=== PATIENT | female | born 1995 | race Two or more races ===

== ENCOUNTER 2022-09-12 13:20 | Inpatient (IN) ==
[2022-09-12] MEDS ORDERED: Lactated Ringers 1000 ml BAG 1,000 ML IV SCH (14:00)
[2022-09-12] MEDS ORDERED: Buffered Lidocaine 1% SYRIN 1 ml INTRADERM ONE (14:00)
[2022-09-12] MEDS ORDERED: Lactated Ringers 1000 ml BAG 1,000 ML IV ONE (14:00)
[2022-09-12 15:22] LABS: Urine Benzodiazepine Screen None Detected (None Detect); Urine Cannabinoids Screen None Detected (None Detect); Urine Opiates Screen None Detected (None Detect)
[2022-09-13] MEDS ORDERED: Witch Hazel PAD JAR TOPICAL PRN (02:31)
[2022-09-13] MEDS ORDERED: Dibucaine 1% OINT 28.35 GM TUBE PR PRN (02:31)
[2022-09-13] MEDS ORDERED: Glycerin ADULT 2.4 gm SUPP PR PRN (02:31)
[2022-09-13] MEDS ORDERED: Lidocaine 1% MPF 5 ML VIAL ONE (05:13)
[2022-09-14 07:14] LABS: ABS Eosinophils 0.1 10^3/ul (0-0.6); ABS Lymphocytes 1.9 10^3/ul (1.0-4.8); ABS Monocytes 0.9 10^3/ul (0-0.8); ABS Neutrophils 9.4 10^3/ul (1.5-7.7); Eosinophil % 0.5 %; Hematocrit 34 % (35-47); Lymphocyte % 15.5 %; Mean Corpuscular HGB Conc 33 g/dL (31-36); Mean Corpuscular Hemoglobin 28 pg (27-31); Mean Corpuscular Volume 86 fL (80-97); Mean Platelet Volume 8.5 fL (7.4-10.4); Platelet Count 250 10^3/uL (150-450); Red Blood Count 3.95 10^6 /uL (3.70-4.87); Red Cell Distribution Width 18 % (10-15); White Blood Count 12.3 10^3/uL (3.5-10.8)
[2022-09-15 08:14] VITALS: BP 100/56
== END 2022-09-15 14:47 | disposition home or self-care (01) | DRG 807 ==
LOC: MCHOBOUT 13:20 → MCHOB 14:38
PROVIDERS: ADMIT Midwife; ATTEND Midwife